=== PATIENT | male | born 1975 | race American Indian/Alaskan Native ===

== ENCOUNTER 2020-07-08 15:32 | Emergency (ER) | payer SELFPAY ==
[2020-07-08 15:36] VITALS: BP 148/97
--- NOTE | 2020-07-08 16:44 | XRay Report ---
XR foot 3+V LT, XR ankle 3+V LT INDICATION / CLINICAL INFORMATION: Pain after injury. COMPARISON: None available. FINDINGS: BONES / JOINT(S): No acute fracture or subluxation. Mild scattered degenerative changes of the left a nkle and foot. SOFT TISSUES: There is soft tissue swelling of the lateral ankle. ADDITIONAL FINDINGS: None. IMPRESSION: Lateral ankle soft tissue swelling without acute osseous findings of the ankle or foot. Signer Name: Jalen Huang MD Signed: 07/08/2020 4:39 PM Workstation Name: [id number]
--- NOTE | 2020-07-08 17:14 | Emergency Department Report ---
ED Lower Extremity HPI - General Chief Complaint: Extremity Injury, Lower Stated Complaint: LFT SWELLING/ANKLE PAIN Time Seen by Provider: 07/08/20 17:04 Source: patient Mode of arrival: Ambulatory Limitations: No Limitations - History of Present Illness Initial Comments: pt is a 45 yo male who presents to the ED with c/o left ankle injury that occurred on 06/20/2020. pt states he was roller skating and had an inversion injury of his ankle. he is ambulatory with some discomfort. he states he is still having pain and intermittent swelling. he states he has had ankle sprains in the past. he denies any previous fracture or dislocation. he denies any numbness or weakness. no pmhx. no allergies to meds. - Related Data Previous Rx's Medication Instructions Recorded Last Taken Type Ibuprofen [Motrin] 800 mg PO Q8HR PRN #21 tablet 06/22/16 Unknown Rx Naproxen [EC-Naproxen] 500 mg PO BID PRN #14 tablet. 07/08/20 Unknown Rx Allergies Allergy/AdvReac Type Severity Reaction Status Date / Time No Known Allergies Allergy Unverified 06/22/16 17:31 ED Review of Systems ROS: Stated complaint: LFT SWELLING/ANKLE PAIN Other details as noted in HPI Comment: All other systems reviewed and negative ED Past Medical Hx - Past Medical History Previous Medical History?: No - Surgical History Past Surgical History?: No - Social History Smoking Status: Current Every Day Smoker Substance Use Type: None - Medications Home Medications: Home Medications Medication Instructions Recorded Confirmed Last Taken Type Ibuprofen [Motrin] 800 mg PO Q8HR PRN #21 tablet 06/22/16 Unknown Rx Naproxen [EC-Naproxen] 500 mg PO BID PRN #14 tablet. 07/08/20 Unknown Rx ED Physical Exam - General Limitations: No Limitations General appearance: alert, in no apparent distress - Head Head exam: Present: atraumatic, normocephalic - Eye Eye exam: Present: normal appearance - ENT ENT exam: Present: mucous membranes moist - Respiratory Respiratory exam: Absent: respiratory distress, accessory muscle use - Extremities Exam Extremities exam: Present: other (ttp and edema to the left lateral malleolus, no ttp to the foot or toes, no deformity, FROM of the LLE, neurovascularly intact) - Neurological Exam Neurological exam: Present: alert, oriented X3 - Psychiatric Psychiatric exam: Present: normal affect, normal mood - Skin Skin exam: Present: warm, dry, intact ED Course Vital Signs 07/08/20 15:36 Temperature 97.6 F Pulse Rate 83 Respiratory 16 Rate Blood Pressure 148/97 [Right] O2 Sat by Pulse 99 Oximetry ED Lower Extremity MDM - Radiology Data Radiology results: report reviewed Ordering Physician: HAYDE CHAPIN Date of Service: 07/08/20 Procedure(s): XR foot 3+V LT Accession Number(s): [id number] cc: AHYDE CHAPIN Fluoro Time In Minutes: XR foot 3+V LT, XR ankle 3+V LT INDICATION / CLINICAL INFORMATION: Pain after injury. COMPARISON: None available. FINDINGS: BONES / JOINT(S): No acute fracture or subluxation. Mild scattered degenerative changes of the left ankle and foot. SOFT TISSUES: There is soft tissue swelling of the lateral ankle. ADDITIONAL FINDINGS: None. IMPRESSION: Lateral ankle soft tissue swelling without acute osseous findings of the ankle or foot. Signer Name: Liv Huang MD Signed: 07/08/2020 4:39 PM Workstation Name: [id number] Transcribed By: VIKA Dictated By: LIV HUANG MD Electronically Authenticated By: LIV HUANG MD Signed Date/Time: 07/08/201638 DD/ 36 TD/TT: Ordering Physician: HAYDE CHAPIN Date of Service: 07/08/20 Procedure(s): XR ankle 3+V LT Accession Number(s): [id number] cc: HAYDE CHAPIN Fluoro Time In Minutes: XR foot 3+V LT, XR ankle 3+V LT INDICATION / CLINICAL INFORMATION: Pain after injury. COMPARISON: None available. FINDINGS: BONES / JOINT(S): No acute fracture or subluxation. Mild scattered degenerative changes of the left ankle and foot. SOFT TISSUES: There is soft tissue swelling of the lateral ankle. ADDITIONAL FINDINGS: None. IMPRESSION: Lateral ankle soft tissue swelling without acute osseous findings of the ankle or foot. Signer Name: Liv Huang MD Signed: 07/08/2020 4:39 PM Workstation Name: [id number] Transcribed By: VIKA Dictated By: LIV HUANG MD Electronically Authenticated By: LIV HUANG MD Signed Date/Time: 07/08/201638 DD/ 36 TD/TT: - Medical Decision Making pt is a 45 yo male who presents to the ED with c/o left ankle injury that occurred on 06/20/2020. pt states he was roller skating and had an inversion injury of his ankle. he is ambulatory with some discomfort. he states he is still having pain and intermittent swelling. he states he has had ankle sprains in the past. he denies any previous fracture or dislocation. he denies any numbness or weakness. no pmhx. no allergies to meds. VSS. on exam: ttp and edema to the left lateral malleolus, no ttp to the foot or toes, no deformity, FROM of the LLE, neurovascularly intact. XR right ankle/foot: Lateral ankle soft tissue swelling without acute osseous findings of the ankle or foot. Examination most consistent with ankle sprain. patient placed in ankle stirrup splint and given crutches and remained neurovascularly intact by nurse. Patient given prescription for naproxen. Advised patient Please take medication as prescribed. Please follow-up with an orthopedic doctor. May use ice 15 minutes at a time, rest, elevation of the leg. Do not bear weight on the leg until you have been cleared by orthopedic doctor. Return to emergency room for any new or worsening symptoms. - Differential Diagnosis strain, sprain, fx, dislocation, tendinitis, contusion Critical care attestation.: If time is entered above; I have spent that time in minutes in the direct care of this critically ill patient, excluding procedure time. ED Disposition Clinical Impression: Left ankle sprain Qualifiers: Encounter type: initial encounter Involved ligament of ankle: unspecified ligament Qualified Code(s): S93.402A - Sprain of unspecified ligament of left ankle, initial encounter Disposition: - TO HOME OR SELFCARE Is pt being admited?: No Does the pt Need Aspirin: No Condition: Stable Instructions: Ankle Sprain, [id number] Additional Instructions: Please take medication as prescribed. Please follow-up with an orthopedic doctor. May use ice 15 minutes at a time, rest, elevation of the leg. Do not bear weight on the leg until you have been cleared by orthopedic doctor. Return to emergency room for any new or worsening symptoms. Prescriptions: Naproxen [EC-Naproxen] 500 mg PO BID PRN #14 tablet.dr RUST Reason: pain Referrals: AFIA WILSON MD [Staff Physician] - 2-[facility] Days [facility] - 2-3 Days Time of Disposition: 17:16 Print Language: [place]
== END 2020-07-08 17:55 | disposition home or self-care (01) ==
LOC: ED 15:32
DX: S93.402A Sprain of unspecified ligament of left ankle, initial encounter (principal); F17.200 Nicotine dependence, unspecified, uncomplicated; Z79.899 Other long term (current) drug therapy; X58.XXXA Exposure to other specified factors, initial encounter; Y93.21 Activity, ice skating; Y92.89 Other specified places as the place of occurrence of the external cause; Y99.8 Other external cause status